=== PATIENT | female | born 2000 | race Caucasian/White ===

== ENCOUNTER 2020-03-07 17:52 | Emergency (ER) | payer BC, SELFPAY ==
--- NOTE | 2020-03-07 18:01 | ED.GENADULT ---
HPI - General Adult General Chief complaint: Extremity Problem,Nontraumatic Stated complaint: hands tingling Time Seen by Provider: 03/07/20 18:05 Source: patient and RN notes reviewed Mode of arrival: ambulatory Limitations: no limitations History of Present Illness HPI narrative: This is a 20 years old female presents to the office for an evaluation of tingling hands for a couple hours prior to arrival. She was sitting around the house when she noticed her symptoms. She normally gets tingling sensation in her hands when she have anxiety or stress however it usually goes away quickly. She has not been stressing out or feeling anxious prior to her symptoms. She discuss her symptoms with her friend whom told her that she might have carpal tunnel syndrome, so she went online in research on her symptoms which made her a little nervous. She also looked up a side effect of her new medication(Abilify) that she started 3-4days ago; when she did not see her symptoms listed as side effects; she got even more nervous which prompted her to seek medical opinion. She also stated that she went to 2 different urgent care who turned her away. Denies neck pain or injury. Denies hand injury or trauma. Related Data Home Medications Medication Instructions Recorded Confirmed alprazolam 1 mg TID PRN 03/07/20 03/07/20 aripiprazole 5 mg DAILY 03/07/20 03/07/20 desvenlafaxine succinate 100 mg PO DAILY 03/07/20 03/07/20 gabapentin 100 mg TID 03/07/20 03/07/20 norethindrone ac-eth estradiol 1 tablet DAILY 03/07/20 03/07/20 [Amilcar 11/03 (21)] Allergies Allergy/AdvReac Type Severity Reaction Status Date / Time neomycin Allergy Itching Verified 03/07/20 18:07 nickel Allergy Itching Verified 03/07/20 18:07 Review of Systems Review of Systems: Narrative: CONSTITUTIONAL: Denies fever or feeling ill ENT: Denies congestion, sinus pain CARDIOVASCULAR: Denies chest pain RESPIRATORY: Denies dyspnea GASTROINTESTINAL: Denies abdominal pain, nausea, vomiting GENITOURINARY: Denies urinary symptoms SKIN: Denies rash MUSCULOSKELETAL: Denies neck pain/spine pain NEUROLOGIC: Denies lightheaded/dizziness. [facility] Past Medical History Medical History (Updated 03/07/20 @ 18:22 by MARY Garrido) Anxiety and depression Family History Family History Father Diabetes mellitus Hypertension Social History Social History Smoking status: Never smoker Alcohol intake: never Gender identity (if verbalized by the patient): Female Comments At time of signature, I agree with nursing past medical, surgical, social and family history. There is no relevant family history pertinent to the presenting complaint. Exam Narrative: Exam Narrative: GENERAL: This is a well-nourished, well-developed patient, in no apparent distress. HEAD: normocephalic, atraumatic. EYES: PERRL. EMOI. Sclera clear/white. Vision is grossly intact. EARS: External ears normal, auditory canals clear and without drainage, TMs normal without perforation. Hearing grossly intact. NECK: Neck supple, non-tender without lymphadenopathy, masses or thyromegaly. Negative Spurling test. CARDIOVASCULAR: Regular rate and rhythm without murmurs, gallops, or rubs. RESPIRATORY: Clear to auscultation. Breath sounds equal bilaterally. No wheezes, rales, or rhonchi. GASTROINTESTINAL: Abdomen soft, non-tender, nondistended. Bowel sounds are active. No hepato-splenomegaly, or palpable masses. No guarding. SKIN: warm, intact with no suspicious lesions or rash, good texture and turgor. NEURO: awake, alert, and oriented to person, place and time. There were no obvious focal neurologic abnormalities. Steady gait EXTREMITIES: the left wrist is with obvious asymmetry or deformity when compared to the right wrist. NO surface trauma, open wounds, swelling or obvious deformity. No overlying erythema or
[2020-03-07 18:04] VITALS: BP 136/79; PULSE 96; RESP 16; TEMP 36.5
== END 2020-03-07 18:25 | disposition home or self-care (01) ==
PROVIDERS: Emergency Provider Nurse Practitioner; PCP Physician Assistant
DX: R20.2 Paresthesia of skin (principal); R20.0 Anesthesia of skin; F41.9 Anxiety disorder, unspecified; F32.9 Major depressive disorder, single episode, unspecified
CPT/HCPCS: 99211; G0463

== ENCOUNTER 2021-01-09 19:04 | Emergency (ER) | payer OTHER, SELFPAY ==
[2021-01-09 19:21] VITALS: BP 129/76; PULSE 93; RESP 16; TEMP 36.9; O2SAT 99
--- NOTE | 2021-01-09 19:31 | ED.EXTPRO ---
HPI - Extremity Problem General Chief complaint: Extremity Injury, Upper Stated complaint: right thumb injury Time Seen by Provider: 01/09/21 19:20 Source: patient and RN notes reviewed Mode of arrival: ambulatory Limitations: no limitations History of Present Illness HPI Narrative: 20-year-old female presents concern with pain in her right first digit. She denies any injury or trauma to the area. Reports she is right-hand dominant and uses that digit to use her cell phone. Reports she frequently uses her cell phone. Reports painful when she bends the DIP joint, is relatively nontender lateral edge of the digit is tender. She denies any bruising, swelling, redness, warmth. Denies decreased strength, sensation, range of motion MD Complaint: extremity pain Related Data Home Medications Medication Instructions Recorded Confirmed aripiprazole [Abilify] 5 mg PO DAILY 01/09/21 01/09/21 duloxetine [Cymbalta] 60 mg PO DAILY 01/09/21 01/09/21 gabapentin [Neurontin] 100 mg PO QID 01/09/21 01/09/21 norethindrone ac-eth estradiol 1 tablet PO DAILY 01/09/21 01/09/21 [11/03 ()] Allergies Allergy/AdvReac Type Severity Reaction Status Date / Time neomycin Allergy Itching Verified 01/09/21 19:18 nickel Allergy Itching Verified 01/09/21 19:18 Review of Systems Review of Systems: Narrative: CONSTITUTIONAL: Denies malaise, chills, sweats, or fever. CARDIOVASCULAR: Denies chest pain, palpitations, or edema. SKIN: Denies right first digit bruising, redness, warmth, laceration, abrasion MUSCULOSKELETAL: Reports pain to the first digit of the right hand, denies decreased sensation, range of motion, strength NEUROLOGIC: Denies numbness, weakness All systems reviewed & are unremarkable except as noted in HPI and below PMFSH Past Medical History Medical History (Updated 01/09/21 @ 19:35 by Sammie Porter NP) Anxiety and depression Family History Family History Father Diabetes mellitus Hypertension Social History Social History Smoking status: Never smoker Alcohol intake: never Gender identity (if verbalized by the patient): Female Comments At time of signature, agree with nursing past medical, surgical, social and family history. There is no relevant family history pertinent to the presenting complaint Exam Narrative: Exam Narrative: GENERAL: Well-appearing, well-nourished, and in no acute distress. HEAD: Normocephalic EYES: PERRLA, conjunctivae clear NECK: Supple. CHEST: Speaks in full sentences. No respiratory distress. HEART: Regular rate and rhythm. Normal and equal peripheral pulses. EXTREMITIES: First digit left hand has normal strength and sensation. 5/5 strength with digit flexion, extension. Range of motion normal. No clubbing, cyanosis, or edema noted. No tenderness. Skin intact. Normal digital cascade with flexion of fingers, median, ulnar and radial nerve intact. Normal sensation of each side of finger. Can perform 'okay' sign, 'cross over finger test of index and middle fingers' and 'thumbs up' sign. No scissoring. Normal thumb opposition. Good capillary refill and radial pulse. Distal capillary refill less than 3 seconds. SKIN: Warn, dry, intact, pink. No rash NEURO: Alert and oriented x3. PSYCH: Normal mood and affect Course Course Emergency Course: Patient is aware of diagnosis, understands and agrees to treatment plan. Anticipatory guidance given. Patient agrees to follow-up as directed and is aware of reasons to seek care at the emergency department. Portions of this record may have been created with voice recognition software Vital Signs Vital signs: Vital Signs Temperature 98.5 F 01/09/21 19:21 Pulse Rate 93 01/09/21 19:21 Respiratory Rate 16 01/09/21 19:21 Blood Pressure 129/76 01/09/21 19:21 Pulse Oximetry 99 01/09/21 19:21 Temperature 98.5 F
== END 2021-01-09 19:38 | disposition home or self-care (01) ==
PROVIDERS: Emergency Provider Nurse Practitioner
DX: M77.8 Other enthesopathies, not elsewhere classified (principal); F41.9 Anxiety disorder, unspecified; F32.9 Major depressive disorder, single episode, unspecified
CPT/HCPCS: 99212; G0463

== ENCOUNTER → 2022-01-23 16:34 | Outpatient (CLI) | payer OTHER, SELFPAY ==
--- NOTE | ~2022-01-23 | XR_ITS ---
EXAMINATION: XR chest 2V DATE: 01/23/2022 17:05 INDICATION: Chest tightness. TECHNIQUE: Frontal and lateral views of the chest were obtained. COMPARISON: Chest 2 views 07/03/2018 FINDINGS: The chest demonstrates clear lungs without pneumonia, pleural effusion, or pneumothorax. Th e heart size is normal. IMPRESSION: 1. No acute cardiopulmonary disease. Reviewed, dictated and finalized at location A.
== END ==
PROVIDERS: PCP Physician Assistant; Visit Provider Physician Assistant
DX: R07.89 Other chest pain (principal); E11.9 Type 2 diabetes mellitus without complications
CPT/HCPCS: 71046

== ENCOUNTER 2022-06-08 16:58 | Emergency (ER) | payer BC, MEDICAID, SELFPAY ==
--- NOTE | ~2022-06-08 | XR_ITS ---
EXAMINATION: XR knee RT min 4V DATE: 06/08/2022 17:42 INDICATION: Right knee pain TECHNIQUE: Four views of the right knee were obtained. COMPARISON: None. FINDINGS: Alignment is normal. No fracture or osteochondral lesion. Joint spaces are normal with no e rosions. No joint effusion/synovitis. Soft tissues are unremarkable. IMPRESSION: 1. No acute osseous abnormality. Reviewed, dictated and finalized at location B.
[2022-06-08 17:08] VITALS: BP 124/77; PULSE 93; RESP 16; TEMP 36.9; O2SAT 100
--- NOTE | 2022-06-08 17:26 | ED.LOWEXIN ---
HPI - Extremity Injury (Lower) General Stated Complaint: Right knee injury Time Seen by Provider: 06/08/22 17:15 Source: patient Mode of arrival: ambulatory Limitations: no limitations History of Present Illness HPI Narrative: Ms. Andres is a 22-year-old female patient presenting to the clinic today with complaints of right knee pain/injury. She reports that she rammed her knee Into a corner of a table 1 week ago. She has been resting icing and elevating it and wearing a compression sleeve. She reports that she is still having pain to the anterior knee. She is requesting an x-ray to be completed today Related Data Home Medications Medication Instructions Recorded Confirmed aripiprazole 5 mg tablet (Abilify) 5 mg PO DAILY 01/09/21 01/09/21 duloxetine 60 mg capsule,delayed 60 mg PO DAILY 01/09/21 01/09/21 release (Cymbalta) gabapentin 100 mg capsule 100 mg PO QID 01/09/21 01/09/21 (Neurontin) norethindrone acetate 1 mg-ethinyl 1 tablet PO DAILY 01/09/21 01/09/21 estradiol 20 mcg tablet (Junel) Allergies Allergy/AdvReac Type Severity Reaction Status Date / Time neomycin Allergy Itching Verified 01/09/21 19:18 nickel Allergy Itching Verified 01/09/21 19:18 Review of Systems Review of Systems: Pertinent positives per HPI. Patient denies any fever, chills, rash, headache, visual changes, dizziness, cough, runny nose, sore throat, shortness of breath, chest pain, palpitations, nausea, vomiting, diarrhea, constipation, abdominal pain, or any urinary issues. [facility] Past Medical History Medical History (Updated 06/08/22 @ 17:32 by Wilbur Barker APRN) Anxiety and depression Family History Family History Father Diabetes mellitus Hypertension Social History Social History Smoking status: Never smoker Alcohol intake: never Gender identity (if verbalized by the patient): Female Comments At the time of my signature, I reviewed and agree with the nursing past medical, surgical, social, and family history. There is no relevant family history pertinent to the patient complaint. Exam Narrative: General: Well-developed, well nourished, in no apparent distress Head: Normocephalic, atraumatic. Cardio: Regular rate and rhythm, s1 and s2 normal, no murmur appreciated. Resp: Clear to auscultation bilaterally, no rhonchi, rales, wheezing or rubs. Musculoskeletal: No deformity, tender to palpation over the anterior knee, negative Trisha, negative valgus varus testing, grossly normal range of motion, muscle strength strong and equal, peripheral pulse strong, no edema, no cyanosis, normal gait and station Course Course Emergency Course: Portions of this record may have been created with voice recognition software. Level of Care: Express Care Visit Vital Signs Vital signs: Vital Signs Temperature 36.9 C 06/08/22 17:08 Pulse Rate 93 06/08/22 17:08 Respiratory Rate 16 06/08/22 17:08 Blood Pressure 124/77 06/08/22 17:08 Pulse Oximetry 100 06/08/22 17:08 Oxygen Delivery Room Air 06/08/22 17:08 Temperature 36.9 C 06/08/22 17:08 Pulse Rate 93 06/08/22 17:08 Respiratory Rate 16 06/08/22 17:08 Blood Pressure 124/77 06/08/22 17:08 Pulse Oximetry 100 06/08/22 17:08 Oxygen Delivery Room Air 06/08/22 17:08 Vital signs reviewed MDM - Extremity Injury (Lower) MDM Narrative Medical decision making narrative: At the time of visit patient was resting comfortably on the exam table. X-ray was negative for any fracture or malalignment of the right knee. I suspect the patient has a contusion of the right knee. Supportive measures were discussed with the patient she voiced understanding of discharge instructions and agrees to treatment plan. Differential Diagnosis Differential diagnosis: Likely other (Knee fracture, knee sprain, knee contusion) Imaging Da
== END 2022-06-08 18:11 | disposition home or self-care (01) ==
PROVIDERS: Emergency Provider Nurse Practitioner Family
DX: S80.01XA Contusion of right knee, initial encounter (principal); W22.03XA Walked into furniture, initial encounter; F41.9 Anxiety disorder, unspecified; F32.A Depression, unspecified
CPT/HCPCS: 73564; 99213; G0463

== ENCOUNTER → 2022-06-09 15:10 | Outpatient (CLI) | payer BC, SELFPAY ==
--- NOTE | ~2022-06-09 | XR_ITS ---
XR knee RT 3V 06/09/2022 15:50 INDICATION: Right knee pain PROCEDURE: 3 views right knee COMPARISON: 06/08/2022 FINDINGS: Fracture, dislocation or subluxation is not identified. No significant joint effusion. The soft tissues appear within normal limits. No foreign bodies are identified. IMPRESSION: 1: NO ACUTE BONE OR JOINT ABNORMALITY IDENTIFIED. Reviewed, dictated and finalized at location A.
== END ==
PROVIDERS: PCP Physician Assistant; Visit Provider Physician Assistant
DX: M25.561 Pain in right knee (principal)
CPT/HCPCS: 73562

== ENCOUNTER → 2022-12-13 11:55 | Outpatient (CLI) | payer BC, SELFPAY ==
--- NOTE | ~2022-12-13 | XR_ITS ---
XR knee RT 3V, XR knee LT 3V 12/13/2022 12:56 INDICATION: Bilateral knee pain PROCEDURE: 3 views each knee COMPARISON: No prior studies for comparison. FINDINGS: Fracture, dislocation or subluxation is not identified. No significant joint effusion. The soft tissues appear within normal limits. No foreign bodies are identified. Normal mineralization in both knees. IMPRESSION: 1: No significant bone or joint abnormality. Reviewed, dictated and finalized at location B. [employer]INER IMPRESSION: 1: No significant bone or joint abnormality.
== END ==
DX: M25.561 Pain in right knee (principal); M25.562 Pain in left knee
CPT/HCPCS: 73562

== ENCOUNTER 2023-06-16 13:01 | Emergency (ER) | payer OTHER, SELFPAY ==
[2023-06-16 13:10] VITALS: BP 107/77; PULSE 116; RESP 20; TEMP 36.1; O2SAT 100
--- NOTE | 2023-06-16 14:15 | ED.GENADULT ---
HPI - General Adult General Chief complaint: Upper Respiratory Infection Stated complaint: COVID + WANTS TO BE CHECKED OUT Time Seen by Provider: 06/16/23 13:13 Source: patient Mode of arrival: ambulatory Limitations: no limitations History of Present Illness HPI narrative: This is a 23-year-old female who presents to the ED with chief complaint of URI symptoms beginning this morning. Patient states she took 3 different COVID test at home which were all positive. She is here today because she will need a work note with a positive test. Reports body aches, sore throat, cough, rhinorrhea. Denies fevers, chills, shortness of breath, chest pain, abdominal pain, nausea, vomiting. She does endorse history of diabetes but her sugars have been under control. Related Data Home Medications Medication Instructions Recorded Confirmed aripiprazole 5 mg tablet (Abilify) 5 mg PO DAILY 01/09/21 06/08/22 duloxetine 60 mg capsule,delayed 60 mg PO DAILY 01/09/21 06/08/22 release (Cymbalta) gabapentin 100 mg capsule 100 mg PO QID 01/09/21 06/08/22 (Neurontin) norethindrone acetate 1 mg-ethinyl 1 tablet PO DAILY 01/09/21 06/08/22 estradiol 20 mcg tablet (Junel) dextroamphetamine-amphetamine 15 15 mg PO DIRECTED 06/08/22 06/08/22 mg tablet metformin 500 mg tablet 500 mg PO DIRECTED 06/08/22 06/08/22 Allergies Allergy/AdvReac Type Severity Reaction Status Date / Time neomycin Allergy Itching Verified 06/08/22 18:14 nickel Allergy Itching Verified 06/08/22 18:14 Review of Systems Review of Systems: All systems as dictated in [facility] Past Medical History Medical History (Updated 06/16/23 @ 15:02 by Brody Castle PA-C) Anxiety and depression Family History Family History Father Diabetes mellitus Hypertension Social History Social History Smoking status: Never smoker Alcohol intake: never Gender identity (if verbalized by the patient): Female Exam Narrative: GENERAL: Well-appearing, well-nourished, and in no acute distress. HEAD: Normocephalic, atraumatic. EYES: PERRLA and EOMI. ENT: Nares clear, no rhinorrhea or epistaxis. Mucous membranes moist. Oropharynx without tonsillar hypertrophy exudate or other lesions. NECK: Supple. No adenopathy or masses. CHEST: No respiratory distress. Clear to auscultation. No wheezes rales or rhonchi HEART: Regular rate and rhythm. No murmur heard. Normal peripheral pulses. ABDOMEN: Soft, nontender, nondistended, normal active bowel sounds. MSK: Normal range of motion. No edema. SKIN: Warm, dry, no rash. NEURO: Alert and oriented x3. No focal deficits. PSYCH: Normal mood and affect. Course Vital Signs Vital signs: Vital Signs Temperature 97 F L 06/16/23 13:10 Pulse Rate 116 H 06/16/23 13:10 Respiratory Rate 20 06/16/23 13:10 Blood Pressure 107/77 06/16/23 13:10 Pulse Oximetry 100 06/16/23 13:10 Oxygen Delivery Room Air 06/16/23 13:10 Temperature 97.8 F 06/16/23 15:45 Pulse Rate 88 06/16/23 15:45 Respiratory Rate 16 06/16/23 15:45 Blood Pressure 104/68 06/16/23 15:45 Pulse Oximetry 100 06/16/23 15:45 Oxygen Delivery Room Air 06/16/23 13:10 Medical Decision Making MDM Narrative Medical decision making narrative: This is a 23-year-old female who presents to the ED with chief complaint of URI symptoms and buying a positive home COVID test. She is here for work note. Vitals are normal normal. Exam is benign. COVID test here is positive. Work note given. She is well-appearing with normal oxygen saturation. Pt will be discharged in stable condition. Return precautions given and supportive measures discussed. Pt is understanding and agreeable with plan for discharge and follow-up with PCP. Vital Signs Vital Signs: Vital Signs Temperature 97 F L 06/16/23 13:10 Pulse Rate 116
[2023-06-16 14:56] LABS: Influenza A QL RT-PCR Negative (Negative); Influenza B QL RT-PCR Negative (Negative); RSV RNA, RT-PCR Negative (Negative); SARS-CoV-2 RNA PCR Positive (Negative)
[2023-06-16 15:45] VITALS: BP 104/68; PULSE 88; RESP 16; TEMP 36.6; O2SAT 100
== END 2023-06-16 15:46 | disposition home or self-care (01) ==
PROVIDERS: Emergency Provider Physician Assistant
DX: U07.1 COVID-19 (principal); F41.9 Anxiety disorder, unspecified; F32.A Depression, unspecified; Z79.84 Long term (current) use of oral hypoglycemic drugs
CPT/HCPCS: 87637; 99283

== ENCOUNTER 2024-03-28 11:19 | Emergency (ER) | payer OTHER, SELFPAY ==
[2024-03-28 11:40] VITALS: BP 104/63; PULSE 90; RESP 14; TEMP 36.2; O2SAT 100
--- NOTE | 2024-03-28 12:33 | ED.DENTAL ---
HPI - Dental/Oral General Chief complaint: Dental/Oral Stated complaint: right side tooth pain Time Seen by Provider: 03/28/24 12:28 Source: patient and RN notes reviewed Mode of arrival: ambulatory Limitations: no limitations History of Present Illness HPI Narrative: Patient presents today complaining intermittent pain to right upper tooth x1 year with swelling to the surrounding gums x2 days. States she does have broken molar. Currently rates her pain 4/10 and has been taking ibuprofen and tramadol as well as applying ice in Orajel with little relief. Patient has not had consistent dental insurance, but should be receiving some due to a new job in May. Related Data Home Medications Medication Instructions Recorded Confirmed aripiprazole 5 mg tablet (Abilify) 5 mg PO DAILY 01/09/21 03/28/24 duloxetine 60 mg capsule,delayed 60 mg PO DAILY 01/09/21 03/28/24 release (Cymbalta) gabapentin 100 mg capsule 100 mg PO QID 01/09/21 03/28/24 (Neurontin) norethindrone acetate 1 mg-ethinyl 1 tablet PO DAILY 01/09/21 06/08/22 estradiol 20 mcg tablet (Junel) dextroamphetamine-amphetamine 15 15 mg PO DIRECTED 06/08/22 03/28/24 mg tablet metformin 500 mg tablet 500 mg PO DIRECTED 06/08/22 03/28/24 liraglutide 0.6 mg/0.1 mL (18 mg/3 1.8 mg subcut DAILY 03/28/24 03/28/24 mL) subcutaneous pen injector (Victoza 3-Julien) metoprolol succinate 25 mg 25 mg PO DAILY 03/28/24 03/28/24 tablet,extended release 24 hr trazodone 50 mg tablet 50 mg PO HS 03/28/24 03/28/24 Allergies Allergy/AdvReac Type Severity Reaction Status Date / Time neomycin Allergy Itching Verified 03/28/24 11:55 nickel Allergy Itching Verified 03/28/24 11:55 Review of Systems Review of Systems: CONSTITUTIONAL: Denies body aches, fever, chills, or sweats. EYES: Denies visual changes, redness, or discharge. ENT: Denies rhinorrhea, congestion, sore throat, or otalgia.+ tooth pain CARDIOVASCULAR: Denies chest pain, palpitations, or edema. RESPIRATORY: Denies cough or dyspnea. GASTROINTESTINAL: Denies abdominal pain, nausea, vomiting, or diarrhea. GENITOURINARY: Denies dysuria or hematuria. SKIN: Denies rash, itching, or wounds. MUSCULOSKELETAL: Denies back pain, joint pain, or myalgia. NEUROLOGIC: Denies headache, numbness, tingling, or weakness. PSYCH: Denies depression or anxiety. [facility] Past Medical History Medical History Anxiety and depression Family History Family History Father Diabetes mellitus Hypertension Social History Social History Smoking status: Never smoker Alcohol intake: never Gender identity (if verbalized by the patient): Female Comments At time of signature, I have reviewed and agree with nursing past medical, surgical, social and family history unless otherwise noted. Please see nursing chart for further information. There is no relevant family history pertinent to the presenting complaint Exam Narrative: GENERAL: Well-appearing, well-nourished, and in no acute distress. HEAD: Normocephalic, atraumatic. EYES: EOMI. No redness or drainage. Conjunctivae normal. ENT: Mucous membranes pink and moist. Tooth #3 is broken with surrounding redness of the gumline. No facial swelling. No obvious periapical abscess. NECK: Normal AROM. CHEST: No respiratory distress. EXTREMITIES: Normal range of motion. No edema. SKIN: Warm, dry, no rash. Capillary refill normal. Normal skin turgor. NEURO: No focal deficits. Alert and oriented x3. Gait steady. PSYCH: Normal affect. No signs of depression or anxiety. Course Course Level of Care: Express Care Visit Vital Signs Vital signs: Vital Signs Temperature 97.1 F L 03/28/24 11:40 Pulse Rate 90 03/28/24 11:40 Respiratory Rate 03/28/24 11:40 Blood Pressure 1
== END 2024-03-28 12:45 | disposition home or self-care (01) ==
PROVIDERS: Emergency Provider Nurse Practitioner
DX: K04.7 Periapical abscess without sinus (principal); F32.A Depression, unspecified; F41.9 Anxiety disorder, unspecified
CPT/HCPCS: 99213; G0463